=== PATIENT | male | born 1995 | race Two or more races ===

== ENCOUNTER 2021-11-13 19:46 | Emergency (ER) | payer OTHER ==
[~2021-11-13] VITALS: Ht 172.7 cm; Wt 72.1 kg
--- NOTE | 2021-11-13 20:15 | NUR ---
PATIENT BIBRA 102 FROM HOME C/O FINDING EMPTY BOTTLE TO TYLENOL NEXT TO HIM, TAKEN AROUND 1730HRS. PATIENT TAKEN TO ER BED 12. PT A/O X 3, RR EVEN AND UNLABORED, NO SOB NOTED. NO ACUTE DISTRESS NOTED. PATIENT CONNECTED TO CARDIAC AND POX MONITOR.
[2021-11-13] MEDS ORDERED: ONDANSETRON HCL/PF 4 MG/2 ML VIAL ONE (20:19)
--- NOTE | 2021-11-13 20:24 | NUR ---
NAHEED #18G S/L. BLOOD COLLECTED AND SENT TO LAB
--- NOTE | 2021-11-13 20:25 | NUR ---
URINE SPECIMEN COLLECTED AND SENT TO LAB.
[2021-11-13] MEDS ORDERED: IV NS 0.9% 1,000 ML BAG IV ONE (20:30)
[2021-11-13] MEDS ORDERED: ONDANSETRON HCL/PF 4 MG/2 ML VIAL IVP ONE (20:30)
--- NOTE | 2021-11-13 20:35 | NUR ---
[employer] AT BEDSIDE
[2021-11-13 20:39] LABS: BASOPHILS % (AUTO) 0.5 % (0.0-2.0); EOSINOPHILS % (AUTO) 2.7 % (0.0-6.0); HEMATOCRIT 46 % (39-51); HEMOGLOBIN 15.4 g/dL (13.5-17.5); LYMPHOCYTES # (AUTO) 2.1 K/uL (0.8-4.8); LYMPHOCYTES % (AUTO) 30.7 % (20.0-44.0); MEAN CORPUSCULAR HGB CONC 33 g/dl (31.0-36.0); MEAN CORPUSCULAR VOLUME 89 fL (80-96); MONOCYTES # (AUTO) 0.6 K/uL (0.1-1.30); MONOCYTES % (AUTO) 8.6 % (2.0-12.0); NEUTROPHILS % (AUTO) 57.5 % (43.0-81.0); PLATELET COUNT (AUTO) 163 K/uL (150-450); RED BLOOD CELL COUNT(AUTO) 5.21 MIL/uL (4.5-6.0); WHITE BLOOD COUNT (AUTO) 6.9 K/uL (4.3-11.0)
[2021-11-13 20:46] LABS: BILIRUBIN,URINE NEGATIVE (NEGATIVE); COLOR,URINE YELLOW (YELLOW); LEUKOCYTE ESTERASE ,URINE NEGATIVE (NEGATIVE); NITRITE, URINE NEGATIVE (NEGATIVE); PROTEIN,URINE NEGATIVE (NEGATIVE); UGLUCOSE NEGATIVE (NEGATIVE); UROBILINOGEN,URINE 0.2 EU/dL (0.2)
[2021-11-13 20:55] LABS: CALCIUM, SERUM 8.7 mg/dL (8.5-10.1); CREATININE 0.9 mg/dL (0.6-1.3); POTASSIUM 3.6 mmol/L (3.5-5.1)
[2021-11-13 20:59] LABS: ALBUMIN 4.5 g/dL (3.4-5.0); BILIRUBIN,DIRECT 0.1 mg/dL (0.0-0.2); BILIRUBIN,TOTAL 0.2 mg/dL (0.2-1.0); TOTAL PROTEIN, SERUM 7.6 g/dL (6.4-8.2)
[2021-11-13 21:34] VITALS: BP 112/69
--- NOTE | 2021-11-14 01:24 | NUR ---
[facility] TEAM AT BEDSIDE
--- NOTE | 2021-11-14 01:36 | NUR ---
SUZETTE (SISTER) [phone] WITH TELECOMMUNICATION ENGINEER PT FOR D/C. ETA 10 MINUTES
--- NOTE | 2021-11-14 02:04 | NUR ---
Patient discharged to home in stable condition. Written and verbal after care instructions given. Patient verbalizes understanding of instruction. IV removed. Catheter intact and site benign. Pressure and 4x4 applied to site. No bleeding noted.
== END 2021-11-14 02:04 | disposition home or self-care (01) ==
LOC: ER 19:48
DX: F10.129 Alcohol abuse with intoxication, unspecified (principal); Y90.8 Blood alcohol level of 240 mg/100 ml or more
CPT/HCPCS: 36415; 80048; 80076; 80143 ×2; 80307; 80320; 81003; 85025; 93005; 96361; 96374; 99284; J2405; J7030; G0480